=== PATIENT | female | born 1990 ===

== ENCOUNTER 2017-12-16 10:05 | Emergency (ER) | payer SELFPAY ==
[2017-12-16 11:09] VITALS: BP 114/72
--- NOTE | 2017-12-16 11:47 | ED ---
Throat Pain/Nasal Congestion - HPI Summary HPI Summary: 27 yr old female with discomfort and decreased hearing in both ears. She states she has had issues with cerumen before. No sore throat, no cough or cold symptoms. No fever, chills. 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 - History of Current Complaint Chief Complaint: UCEar Time Seen by Provider: 12/16/17 11:22 - Allergies/Home Medications Allergies/Adverse Reactions: Allergies Allergy/AdvReac Type Severity Reaction Status Date / Time amoxicillin [From Augmentin] Allergy See Comment Verified 12/16/17 11:04 clavulanic acid Allergy See Comment Verified 12/16/17 11:04 [From Augmentin] clindamycin Allergy Rash Verified 12/16/17 11:04 Home Medications: Home Medications Levonorgestrel (Iud) [Mirena IUD] 1 applic ONCE 12/16/17 [History Confirmed 08/04] PMH/Surg Hx/FS Hx/Imm Hx Infectious Disease History: No Infectious Disease History: Denies: Traveled Outside the [place] in Last 30 Days - Family History Known Family History: Positive: None - Social History Occupation: Unemployed - but 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 Alcohol Use: Occasionally Substance Use Type: Reports: None Smoking Status (MU): Never Smoked Tobacco Review of Systems Constitutional: Negative Positive: Ear Ache All Other Systems Reviewed And Are Negative: Yes Physical Exam Triage Information Reviewed: Yes Vital Signs On Initial Exam: Initial Vitals Temp Pulse Resp BP Pulse Ox 98.2 F 95 16 114/72 100 12/16/17 11:05 12/16/17 11:05 12/16/17 11:05 12/16/17 11:05 12/16/17 11:05 Vital Signs Reviewed: Yes Appearance: Positive: Well-Appearing, No Pain Distress Skin: Positive: Warm, Skin Color Reflects Adequate Perfusion Head/Face: Positive: Normal Head/Face Inspection Eyes: Positive: EOMI ENT: Positive: Other - bilateral cerumen impaction Neck: Positive: Supple, Nontender Respiratory/Lung Sounds: Positive: Clear to Auscultation, Breath Sounds Present Cardiovascular: Positive: RRR. Negative: Murmur Abdomen Description: Negative: Distended Musculoskeletal: Positive: Strength/ROM Intact Neurological: Positive: Sensory/Motor Intact, Alert, Oriented to Person Place, Time, CN Intact II-III, Normal Gait Psychiatric: Positive: Normal - Lupe Coma Scale Best Eye Response: 4 - Spontaneous Best Motor Response: 6 - Obeys Commands Best Verbal Response: 5 - Oriented Coma Scale Total: 15 Diagnostics - Vital Signs Vital Signs Temp Pulse Resp BP Pulse Ox 12/16/17 11:05 98.2 F 95 16 114/72 100 - Laboratory Lab Statement: Any lab studies that have been ordered have been reviewed, and results considered in the medical decision making process. Re-Evaluation - Re-Evaluation First Eval Re-Evaluation Time: 11:59 Change: Improved Comment: Both ears reexamined and the TMs are easily seen now without any perforation, redness or effusion. Wax is gone now after irrigation. EENT Course/Dx - Course Course Of Treatment: 27 yr old with cerumen impaction. Impaction removed by nursing irrigation. - Diagnoses Provider Diagnoses: Impacted cerumen of both ears Discharge - Sign-Out/Discharge Documenting (check all that apply): Discharge/Admit/Transfer - Discharge Plan Condition: Good Disposition: HOME Patient Education Materials: Cerumen Impaction (ED) Referrals: No Primary Care Phys,NOPCP [Primary Care Provider] - [facility] [Outside] - Billing Disposition and Condition Condition: GOOD Disposition: Home
== END 2017-12-16 12:09 | disposition home or self-care (01) ==
LOC: UCCORT 10:05
DX: H61.23 Impacted cerumen, bilateral (principal); Z88.0 Allergy status to penicillin; Z88.1 Allergy status to other antibiotic agents
CPT/HCPCS: 99203; G0463